=== PATIENT | male | born 1955 | race Caucasian/White ===

== ENCOUNTER 2019-05-03 11:01 | Emergency (ER) | payer OTHER ==
[~2019-05-03] VITALS: Ht 167.6 cm; Wt 81.6 kg
[2019-05-03 11:09] VITALS: BP 130/92
--- NOTE | 2019-05-03 11:20 | NUR ---
Patient BIBA BLS, transferred to bed 4. RN evaluating patient at bedside.
--- NOTE | 2019-05-03 11:28 | NUR ---
63/M TO ED VIA EMS FOR ETOH INTOXICATION. PER EMS PT WAS FOUND IN HIS APARTMENT COMPLEX AND ADMITS TO DRINKING 2 BEERS AND EMS REPORTED THAT THEY FOUND A BOTTLE OF WHISKEY NEXT TO HIM. PT IS ALERT TO NAME AND BIRTHDAY UNABLE TO RECALL PLACE AND EVENT. PT PLACED INTO BED 4 FOR MSE. REMAINS ON CONTINOUS CARDIAC MONITORING.
--- NOTE | 2019-05-03 13:15 | NUR ---
AMBULATORY TO RESTROOM WITH STEADY GAIT. OKAY TO D/C PER DR OLGUIN.
--- NOTE | 2019-05-03 13:18 | NUR ---
Patient discharged with v/s stable. Written and verbal after care instructions given and explained. Patient verbalized understanding. Ambulatory with steady gait. All questions addressed prior to discharge. Advised to follow up with PMD.
[2019-05-03 13:21] VITALS: BP 145/76
== END 2019-05-03 13:18 | disposition home or self-care (01) ==
LOC: MED 11:01
DX: R05 Cough (principal); F10.10 Alcohol abuse, uncomplicated
CPT/HCPCS: 71045; 99283; Q0092